=== PATIENT | male | born 1995 | race Caucasian/White ===

== ENCOUNTER 2017-03-10 11:12 | Emergency (ER) | payer OTHER ==
[~2017-03-10] VITALS: Ht 190.5 cm; Wt 68.7 kg
[2017-03-10 11:17] VITALS: Ht 190.5 cm; Wt 68.7 kg
[2017-03-10] MEDS ORDERED: XYLOCAINE 1%/SOD BICARB 20 ML VIAL INFIL ONE (11:45)
[2017-03-10] MEDS ORDERED: CEPH500C2 PO (12:50)
[2017-03-10 13:40] VITALS: BP 134/80; PULSE 69; TEMP 37; O2SAT 98
--- NOTE | 2017-03-10 15:22 | EMERGENCY ROOM VISIT NOTE ---
ED Visit Note First contact with patient: 11:23 Chief Complaint: I cut my right index finger. History of Present Illness: Mr. Washington is a 21-year-old white male who ambulates into the ED complaining of a right index finger laceration. Patient reports she was opening a bottle of beer last night and when he did the bottle broke over the neck and he cut his right index finger. This happened approximately 12 hours ago. Prior to arrival at the hospital he reports he is wash the wound with alcohol. Currently he is complaining of a stinging and burning sensation throughout the index finger. He rates his discomfort 7/10. The pain is nonradiating. The pain worsens with palpation, flexion and extension of the PIP and DIP joints. He has not identified any alleviating factors related to the pain. He has not taken any medications for pain prior to arrival at the hospital. Associated with his pain he reports he has a mild tingling sensation over the distal finger. Review of Systems: As noted above in history of present illness. Past Medical History: Pneumonia. Current Medications: Patient denies. Allergies to Medications: Benadryl. Social History: Patient is currently University student isn't employed; he feels safe in his home environment; he admits to tobacco and alcohol use. Tetanus Immunization Status: Patient reports up-to-date. Physical Examination: Vital Signs: Date Time Temp Pulse Resp B/P (MAP) Pulse Ox O2 Delivery O2 Flow Rate FiO2 03/10/17 13:40 37.0 69 18 134/80 98 03/10/17 11:17 37.0 98 17 142/65 100 Room Air GENERAL: 21-year-old male in mild distress due to pain, nontoxic-appearing, afebrile and hemodynamically stable. NEUROLOGICAL: Awake, alert and oriented to person, place and time. Answering questions appropriately and following commands. SKIN: Warm, dry and pink. Right Middle Finger: 3.1 cm full-thickness laceration over the anterior aspect of the middle phalanx and extending over the DIP and distally just into the distal phalanx. RIGHT MIDDLE FINGER: No gross bony deformity. Soft tissue injury as noted above. Mild tenderness over the PIP joint without bony deformity or crepitus. No tenderness over the DIP joint. Full range of motion of the PIP and DIP joint. Throughout the finger the skin was warm and pink and capillary refill is brisk. He was able to distinguish light sensations through all dermatomes. ED Course: Patient is assessed as noted above. Patient's medication list was reviewed. Wound Repair: Complexity: Basic Verbal consent was obtained after the risks and benefits were explained. The skin was prepped with betadine and a sterile field set. Wound edges of the wound was anesthetized with 1.2 ml buffered 1% lidocaine. The wound was explored for foreign bodies and none found. Copious irrigation was performed using sterile saline. With direct pressure the bleeding subsided. Debridement was not performed. The wound edges were approximated using 5-0 Ethilon with 7 simple interrupted sutures. Hemostasis and excellent approximation was achieved. Antibacterial ointment and a sterile dressing applied. Metal finger splint applied. No complications and the patient tolerated the procedure well. Oriented the procedure patient became lightheaded and he was lied supine until discharge and reported he was feeling better. Patient was educated about tonight's findings and instructed on his treatment plan; he verbalizes understanding and agreement with this plan. Clinical Impression: Laceration of the right middle finger. Disposition: Patient discharged home in stable condition; prior to departure he was reassessed and subjectively reported he was feeling better. Plan: Comfort measures, wound care, and signs of infection were discussed with the patient. Because of delayed closure patient was placed on Keflex 500 mg 4 times a day for 7 days. Patient was encouraged to follow-up with [facility] or return to the ED for signs of infection and/or suture removal in 10-12 days.
--- NOTE | 2017-03-13 10:59 | EDITING REQUIRED CODING QUERY ---
CODING QUERY Dane WIGGINS, To promote full compliance with coding requirements relating to patient care, provider participation is requested in all cases of auditing coder uncertainty. Please assist us with the question(s) below: Coding Question(s): History of Present Illness states patient has right index finger laceration. Per impression, patient has right middle finger laceration. Please clarify below: Physician's Response(s): The laceration was on the the right middle finger Thank you Aroldo Zapien Principal Diagnosis: "_that condition established after study, to be chiefly responsible for occasioning the admission of the patient to the hospital for care." Co-Existing Principal Diagnosis: "_when two or more diagnoses equally meet the criteria for principal diagnosis as determined by the circumstances of admission, diagnostic work up, and/or therapy provided, and the Alphabetic Index, Tabular List, or another coding guideline does not provide sequencing direction, any one of the diagnoses may be sequenced first." "When the physician has documented what appears to be a current diagnosis in the body of the record, but has not included the diagnosis in the final diagnostic statement, the physician should be asked whether the diagnosis should be added." (Source [facility] 2 QTR90. p3-4)
== END 2017-03-10 13:28 | disposition home or self-care (01) ==
LOC: C.EDB 11:15 → C.EDD 13:28
DX: S61.212A Laceration without foreign body of right middle finger without damage to nail, initial encounter (principal); W25.XXXA Contact with sharp glass, initial encounter; Y93.89 Activity, other specified; Y99.8 Other external cause status; Z87.01 Personal history of pneumonia (recurrent); Z72.0 Tobacco use